=== PATIENT | female | born 1945 | race American Indian/Alaskan Native ===

== ENCOUNTER 2016-09-22 12:24 | Outpatient (CLI) | payer MEDICARE ==
--- NOTE | 2014-06-09 14:00 | Mammography Report ---
BILATERAL DIGITAL SCREENING MAMMOGRAM WITH CAD: 06/09/14 00:00:00 CLINICAL: Routine screening. COMPARISON:None available. FINDINGS: Intermediate density breasts.No mass, architectural distortion or suspicious calcifications. IMPRESSION: No mammographic evidence of malignancy. BI-RADS CATEGORY: 2--Benign RECOMMENDATION: Routine mammographic screening in one year. COMMENT: Patient follow-up letters are generated by our [employer] application.
--- NOTE | 2016-09-22 14:57 | Mammography Report ---
BILATERAL MAMMOGRAM: FINDINGS: The breasts are almost entirely fat (<25% glandular). No mass, distortion, suspicious calcification, or skin change is seen. No interval change compared to prior examination in 2015. CAD was utilized. IMPRESSION: Negative mammogram. There is no mammographic evidence of malignancy. RECOMMENDATION: Follow-up per ACS guidelines. BI-RADS CATEGORY: 1 = Negative ACR BI-RADS MAMMOGRAPHIC CODES: 0 = Needs additional imaging evaluation; 1 = Negative; 2 = Benign; 3 = Probably benign; 4 = Suspicious; 5 = Malignant; 6 = Known biopsy-proven malignancy COMMENT: 1. Dense breast tissue, i.e., adenosis, fibrocystic changes, etc., may obscure an underlying neoplasm. 2. Approximately 10% of cancers are not detected with mammography. 3. A negative mammography report should not delay biopsy if a clinically suspicious mass is present. COMMENT: Patient follow-up letters are generated in [employer].
== END 2016-09-22 12:25 | disposition home or self-care (01) ==
LOC: SPVWC 12:24
DX: Z12.31 Encounter for screening mammogram for malignant neoplasm of breast (principal)
CPT/HCPCS: 77052; 77057; 77067; G0202

== ENCOUNTER 2016-12-09 11:14 | Outpatient (CLI) | payer MEDICARE ==
--- NOTE | 2016-12-09 11:49 | XRay Report ---
LUMBAR SPINE RADIOGRAPHS: INDICATION: Back pain. COMPARISON: 07/12/2015. FINDINGS: AP and lateral lumbar spine radiographs again demonstrate multilevel degenerative changes, including spurring, disc degeneration/narrowing and lower lumbar facet arthropathy. L1 appears spared. Demineralized bones. Slight lumbar levoscoliosis apex about L3. Nonobstructive bowel gas pattern. Intact SI joints. CONCLUSION: No acute lumbar radiographic abnormality with stable degenerative changes, as described. Thank you for the opportunity to participate in this patient's care.
== END 2016-12-09 11:15 | disposition home or self-care (01) ==
LOC: SPVIMAG 11:14
DX: M47.896 Other spondylosis, lumbar region (principal); M41.86 Other forms of scoliosis, lumbar region; M12.88 Other specific arthropathies, not elsewhere classified, other specified site
CPT/HCPCS: 72100

== ENCOUNTER 2018-03-04 13:15 | Outpatient (CLI) | payer MEDICARE ==
--- NOTE | 2018-03-05 08:21 | Mammography Report ---
Bilateral mammogram: Compared to 09/22/16. CAD study utilized. Findings: Predominance adipose tissue bilaterally. Benign densities bilaterally. Benign axillary nodes. No microcalcification. Impression: Benign findings. Annual followup recommended. BI-RADS CATEGORY: 2 = Benign ACR BI-RADS MAMMOGRAPHIC CODES: 0 = Needs additional imaging evaluation; 1 = Negative; 2 = Benign; 3 = Probably benign; 4 = Suspicious; 5 = Malignant; 6 = Known biopsy-proven malignancy COMMENT: 1. Dense breast tissue, i.e., adenosis, fibrocystic changes, etc., may obscure an underlying neoplasm. 2. Approximately 10% of cancers are not detected with mammography. 3. A negative mammography report should not delay biopsy if a clinically suspicious mass is present.
== END 2018-03-04 13:16 | disposition home or self-care (01) ==
LOC: SPVWC 13:15
DX: Z12.31 Encounter for screening mammogram for malignant neoplasm of breast (principal)
CPT/HCPCS: 77067